=== PATIENT | female | born 1980 | race Caucasian/White ===

== ENCOUNTER 2016-11-13 18:30 | Inpatient (IN) | payer BC ==
[~2016-11-13 18:30] MED LIST: ADVIL200 M3 PO; COLACE100 MG PO; FEROSUL325 M1; IRON1 TA1; IRON325 M3 PO; MOTRIN800 MG PO; NO HOME MEDICATION XX; NO HOME MEDICATIONS; PRENATAL TABLE1 EAC3 PO; PRENATAL VITAMI
[2016-11-13] MEDS ORDERED: ZITHROMAX250 M1 PO (19:02)
[2016-11-13] MEDS ORDERED: PRENATAL VITAM1 EAC6 PO (19:03)
[2016-11-13] MEDS ORDERED: IRON 100 PLUS1 EACH PO (19:03)
[2016-11-13] MEDS ORDERED: FOLIC ACID1 M1 PO (19:04)
[2016-11-13 22:28] LABS: URINE BILIRUBIN NEGATIVE (NEG); URINE BLOOD NEGATIVE (NEG); URINE GLUCOSE (UA) NEGATIVE (NEG); URINE KETONE MODERATE (NEG); URINE LEUKOCYTE ESTERASE NEGATIVE (NEG); URINE NITRITE NEGATIVE (NEG); URINE PROTEIN NEGATIVE (NEG)
[2016-11-13 22:48] LABS: INR 1.2 INR (0.9-1.1); PROTHROMBIN TIME 14.3 SECONDS (9.0-13.6)
[2016-11-13 23:00] LABS: PREGNANCY-SERUM NEGATIVE (NEGATIVE)
[2016-11-13 23:03] LABS: FERRITIN 397 ng/ml (8-250)
[2016-11-13 23:09] LABS: IRON 17 ug/dl (37-170); IRON BINDING CAPACITY 182 ug/dl (250-450)
[2016-11-13 23:16] LABS: URINE APPEARANCE CLEAR; URINE COLOR YELLOW
[2016-11-13 23:25] LABS: URINE RBC 0 /[HPF] (0-5); URINE WBC 0 /[HPF] (0-5)
[2016-11-14 04:51] LABS: HGB-HEMOGLOBIN 6.9 gm/dl (12.0-15.5); MCV (MEAN CELL VOLUME) 79.7 fl (82.0-96.0); MEAN PLATELET VOLUME 9.4 cmc (9.4-12.4); NEUTROPHIL-AUTOMATED 5.8 tho/cmm (1.6-8.0); PLATELET COUNT 280 tho/cmm (150-450); RED BLOOD COUNT 2.46 mil/cmm (4.00-5.20); RED CELL DISTRIBUTION WIDTH 18.2 % (12.4-16.4)
[2016-11-14 05:11] LABS: HCT-HEMATOCRIT 19.6 % (34.0-49.0); MCHC MEAN CORPUSCULAR HGB CONC 35.2 % (32.0-36.0)
[2016-11-14 05:20] LABS: ALB/GLOB RATIO 1.1 (0.8-2.0); ALBUMIN 3.4 g/dl (3.5-5.0); ALKALINE PHOSPHATASE 60 U/L (33-138); ALT/SGPT 19 U/L (12-78); ANION GAP 13 mmol/L (0-20); AST/SGOT 34 U/L (10-40); BILIRUBIN,DIRECT 0.3 mg/dl (0.0-0.3); BILIRUBIN,INDIRECT 1.2 mg/dL (0.0-1.0); BILIRUBIN,TOTAL 1.5 mg/dl (0-1.5); BLOOD UREA NITROGEN 9 mg/dl (6-24); CALCIUM 7.5 mg/dl (8.5-10.5); CARBON DIOXIDE-VENOUS 24 mmol/L (22-32); CHLORIDE 109 mmol/l (96-110); CREATININE 0.53 mg/dl (0.50-1.10); GLUCOSE 81 mg/dL (70-110); POTASSIUM 3.7 mmol/L (3.7-5.1); SODIUM 142 mmol/L (135-145); eGFR VALUE FOR BLACK >90 mL/Min
[2016-11-14 05:26] LABS: TSH-THYROID STIMULATING HORM. 1.42 uIU/ml (0.40-3.80)
[2016-11-14 09:44] LABS: BAND % 18 % (0-20); BAND ABSOLUTE COUNT 1.8 tho/cmm (0-2.0); EOSINOPHIL % 1 % (0-7)
[2016-11-14 18:49] LABS: HGB-HEMOGLOBIN 8.9 gm/dl (12.0-15.5)
[2016-11-15 05:49] LABS: HGB-HEMOGLOBIN 8.3 gm/dl (12.0-15.5); MCH (MEAN CORPUSCULAR HGB) 28.2 pg (28.0-32.0); MCV (MEAN CELL VOLUME) 80.6 fl (82.0-96.0); MEAN PLATELET VOLUME 9.4 cmc (9.4-12.4); NEUTROPHIL-AUTOMATED 5.1 tho/cmm (1.6-8.0); PLATELET COUNT 252 tho/cmm (150-450); RED BLOOD COUNT 2.94 mil/cmm (4.00-5.20); RED CELL DISTRIBUTION WIDTH 17.9 % (12.4-16.4); WHITE BLOOD COUNT 9.1 tho/cmm (4.0-10.0)
[2016-11-15 06:01] LABS: ALKALINE PHOSPHATASE 55 U/L (33-138); ALT/SGPT 24 U/L (12-78); ANION GAP 11 mmol/L (0-20); AST/SGOT 40 U/L (10-40); BILIRUBIN,TOTAL 1.7 mg/dl (0-1.5); BLOOD UREA NITROGEN 6 mg/dl (6-24); CALCIUM 7.5 mg/dl (8.5-10.5); CARBON DIOXIDE-VENOUS 26 mmol/L (22-32); CHLORIDE 106 mmol/l (96-110); CREATININE 0.58 mg/dl (0.50-1.10); GLUCOSE 88 mg/dL (70-110); HCT-HEMATOCRIT 23.7 % (34.0-49.0); IMMATURE GRANULOCYTES PERCENT 19.1 % (0-0.3); POTASSIUM 3.4 mmol/L (3.7-5.1); SODIUM 140 mmol/L (135-145); eGFR VALUE FOR BLACK >90 mL/Min
[2016-11-15 06:02] LABS: BASO % 1.5 % (0-2); BASO ABSOLUTE COUNT 0.1 tho/cmm (0.0-0.2); EOS % 1.9 % (0-7); EOSINOPHIL ABSOLUTE COUNT 0.2 tho/cmm (0.0-0.7); IMMATURE GRANULOCYTES ABSOLUTE 1.73 tho/cmm (0-0.03); LYMPH % 12.9 % (20-45); LYMPH ABSOLUTE COUNT 1.2 tho/cmm (0.8-4.5); MONO % 8.3 % (0-12); MONOCYTE ABSOLUTE COUNT 0.8 tho/cmm (0.0-1.2); NEUTROPHIL ABSOLUTE COUNT 5.1 tho/cmm (1.6-8.0); NEUTROPHILS % 56.3 % (40-80)
[2016-11-16 06:23] LABS: HCT-HEMATOCRIT 25.3 % (34.0-49.0); HGB-HEMOGLOBIN 8.5 gm/dl (12.0-15.5); MCH (MEAN CORPUSCULAR HGB) 28.3 pg (28.0-32.0); MCHC MEAN CORPUSCULAR HGB CONC 33.6 % (32.0-36.0); MCV (MEAN CELL VOLUME) 84.3 fl (82.0-96.0); MEAN PLATELET VOLUME 9.9 cmc (9.4-12.4); NEUTROPHIL-AUTOMATED 3.4 tho/cmm (1.6-8.0); PLATELET COUNT 256 tho/cmm (150-450); RED CELL DISTRIBUTION WIDTH 19.9 % (12.4-16.4); WHITE BLOOD COUNT 6.2 tho/cmm (4.0-10.0)
[2016-11-16 06:44] LABS: ALB/GLOB RATIO 0.9 (0.8-2.0); ALKALINE PHOSPHATASE 53 U/L (33-138); ALT/SGPT 22 U/L (12-78); ANION GAP 11 mmol/L (0-20); AST/SGOT 35 U/L (10-40); BILIRUBIN,TOTAL 1.3 mg/dl (0-1.5); BLOOD UREA NITROGEN 9 mg/dl (6-24); CALCIUM 7.8 mg/dl (8.5-10.5); CARBON DIOXIDE-VENOUS 27 mmol/L (22-32); CHLORIDE 109 mmol/l (96-110); CREATININE 0.52 mg/dl (0.50-1.10); GLUCOSE 84 mg/dL (70-110); SODIUM 143 mmol/L (135-145); eGFR VALUE FOR BLACK >90 mL/Min
[2016-11-16 06:53] LABS: BASO % 1.4 % (0-2); BASO ABSOLUTE COUNT 0.1 tho/cmm (0.0-0.2); EOS % 2.6 % (0-7); EOSINOPHIL ABSOLUTE COUNT 0.2 tho/cmm (0.0-0.7); IMMATURE GRANULOCYTES ABSOLUTE 0.96 tho/cmm (0-0.03); IMMATURE GRANULOCYTES PERCENT 15.5 % (0-0.3); LYMPH % 17.1 % (20-45); LYMPH ABSOLUTE COUNT 1.1 tho/cmm (0.8-4.5); MONO % 8.9 % (0-12); MONOCYTE ABSOLUTE COUNT 0.6 tho/cmm (0.0-1.2); NEUTROPHIL ABSOLUTE COUNT 3.4 tho/cmm (1.6-8.0); NEUTROPHILS % 54.5 % (40-80)
== END 2016-11-16 11:49 | DRG 812 ==
LOC: 5WF 18:30
PROVIDERS: Internal Medicine; ADMIT Hospitalist
DX: D58.9 Hereditary hemolytic anemia, unspecified (principal); E87.6 Hypokalemia; D72.829 Elevated white blood cell count, unspecified
CPT/HCPCS: J1756; J2405; P9016